=== PATIENT | female | born 1995 | race Two or more races ===

== ENCOUNTER 2024-06-12 17:32 | Emergency (ER) | payer OTHER, SELFPAY ==
[2024-06-12 18:31] VITALS: BP 120/68; PULSE 102; RESP 20; TEMP 36.8; O2SAT 98; BMI 26.5
--- NOTE | 2024-06-12 18:31 | ED.GENADULT ---
HPI - General Adult General Chief complaint: Upper Respiratory Symptoms Stated complaint: coughing, fever Time Seen by Provider: 06/12/24 20:10 Source: patient Mode of arrival: ambulatory Limitations: no limitations History of Present Illness HPI narrative: Patient is a 29-year-old female who presents emergency department for evaluation of a nonproductive cough, intermittent nausea, body aches over the past 2 weeks. Her 2 sons have been ill with similar symptoms. Her son has tested positive for group a strep. She denies associated headache, neck pain, neck stiffness, chest pain, shortness of breath, difficulty breathing, abdominal pain, genitourinary symptoms. Related Data Previous Rx's ?Medication ?Instructions ?Recorded amoxicillin 500 mg capsule 500 mg PO BID #20 caps 06/12/24 Allergies Allergy/AdvReac Type Severity Reaction Status Date / Time shellfish derived Allergy Anaphylaxis Verified 06/12/24 18:34 Review of Systems Review of Systems: Yes all other systems are reviewed and are negative PMFSH Past Medical History Attestation statement: The following information was validated with the patient. Source: old records reviewed Social History Social History Advance Directives: No Advance Directives Information Provided: No Physical Exam ED Vital Signs: Vital Signs - 24 hr 06/12/24 18:31 06/12/24 22:15 06/12/24 22:24 Temperature 98.3 F 97.4 F 97.4 F Pulse Rate 102 H 84 84 Respiratory Rate 20 16 16 Blood Pressure 120/68 102/52 L 102/52 L Pulse Oximetry 98 99 99 Oxygen Delivery Method Room Air Room Air BMI result Body Mass Index 26.5 Appearance: Alert.?Oriented to person, place and time. No acute distress.?Normal affect. Eyes: Pupils equal, round and reactive to light.? ENT: Pharynx mildly erythematous without hypertrophy or exudates. Uvula is midline. No trismus. No drooling. TM normal bilaterally. Neck: Normal inspection.? Neck supple.?? CVS: Heart sounds normal. Normal heart rate and rhythm.? Pulses normal.?? Respiratory: No respiratory distress.? Lung sounds clear to auscultation bilaterally?? Abdomen: Soft and non-tender. Normoactive bowel sounds Skin: Skin warm and dry.? Normal skin color.? Extremities: No lower extremity edema. Neuro: Moves all extremities spontaneously. Sensation intact bilaterally. Ambulates with normal steady gait. Course Course Course Narrative: RME: 29 yold female presents to the ED for coughing and fever. He states her sons are also sick. Patient denies any shortness of breath. Patient well-appearing. Vital signs stable. SARs strep ordered. Medications Administered Discontinued Medications Generic Name Dose Route Start Last Admin Trade Name Ed PRN Reason Stop Dose Admin Amoxicillin 500 mg 06/12/24 21:40 06/12/24 22:01 Amoxicillin 500 Mg Capsule PO 06/12/24 21:41 500 mg ONCE ONE Administration Medical Decision Making Medical Decision Making [facility] Narrative: Patient is a 29-year-old female with past medical history of asthma, presenting for evaluation of upper respiratory symptoms. Nineteen/influenza/RSV testing was negative. Strep a testing is negative, on exam findings consistent with RPA/[employer]. She is mildly erythematous to the oropharynx, given her close exposure were son who is strep positive in the duration of her illness will treat with a course of amoxicillin. At this time history and physical exam not consistent with ACS/PE/pneumonia. Well-appearing, nontoxic, afebrile,no tachypnea/hypoxia. Speaking clear full sentences, ambulatory with steady gait. Discussed conservative treatment including rest, hydration, Tylenol/ibuprofen as needed for fever and body aches, saline nasal spray, humidifier, [id number] cold medication. Advised to follow-up with primary care provider as needed, discussed reasons to return back to the emergency department. All questions were answered. Patient discharged home in stable condition. Differential Diagnosis Differential Diagnoses: The differential diagnosis associated with the presentation includes ( See narrative above) Admission/Observation Consideration of admission/observation: Escalation of care including admission/observation considered ( see narrative above) Lab Data MDM Lab Attestation statement: I reviewed the patient's lab results. ( see narrative above) Labs: Lab Results 06/12/24 06/12/24 Range/Units 18:49 18:50 Influenza Type A (PCR) NEGATIVE (Negative) Influenza Type B (PCR) NEGATIVE (Negative) RSV RNA Qual (PCR) NEGATIVE (Negative) SARS-CoV-2 RNA (RT-PCR) NEGATIVE (Negative) S. pyogenes GrpA LEYLA Negative (Negative) External Record Review External record reviewed: Outpatient record Prescription Management I considered prescription management with: Pain Medication ( acetaminophen/ibuprofen) and Antibiotic Discharge Plan Discharge Clinical Impression: Upper respiratory infection Patient Disposition: Home, Self-Care Instructions: Upper Respiratory Infection (DC) Additional Instructions: Your testing today for COVID, flu, and RSV are negative. Strep throat testing is negative as well. However given close contact with her son who is strep positive you have been provided with a course of antibiotics. Complete the entire course of antibiotics as prescribed. Be sure to rest, stay well hydrated drinking plenty of fluids, eat small frequent meals. Tylenol/ibuprofen can be used as needed for fever/pain. [id number] cold medications may be helpful as well for symptoms. Saline nasal spray, humidifier may be helpful for nasal congestion. You may return to the emergency department with any new or worsening symptoms or concerns. Follow-up with your primary care provider as needed. Should remain out of school/ work until symptoms have resolved and have been without a fever for 24 hours without the use of Tylenol or ibuprofen. Prescriptions: New amoxicillin 500 mg capsule 500 mg PO BID Qty: 20 0RF Interventions: ED Discharge Assessment Last Done: 06/12/24 22:24 Discharge Date/Time: 06/12/24 22:24 Print Language: Thai
[2024-06-12 19:05] LABS: IDNOW Serial# 08D9AD1C
[2024-06-12 19:06] LABS: Strep A Nucleic Acid Negative (Negative)
[2024-06-12 19:34] LABS: Influenza A PCR NEGATIVE (Negative); Influenza B PCR NEGATIVE (Negative); Resp Syncy Virus RNA Qual PCR NEGATIVE (Negative); SARS COV2 PCR INHOUSE NEGATIVE (Negative)
[2024-06-12] MEDS: Amoxicillin 500 MG CAPSULE PO (22:01)
[2024-06-12 22:15] VITALS: BP 102/52; PULSE 84; RESP 16; TEMP 36.3; O2SAT 99
[2024-06-12 22:24] VITALS: BP 102/52; PULSE 84; RESP 16; TEMP 36.3; O2SAT 99
== END 2024-06-12 22:24 | disposition home or self-care (01) ==
PROVIDERS: Physician Assistant; Emergency Provider Emergency Medicine Emergency Medical Services
DX: J06.9 Acute upper respiratory infection, unspecified (principal); R05.9 Cough, unspecified; R11.0 Nausea; R52 Pain, unspecified; Z03.818 Encounter for observation for suspected exposure to other biological agents ruled out
CPT/HCPCS: 0241U; 87651; 99283